=== PATIENT | female | born 1975 | race Caucasian/White ===

== ENCOUNTER 2017-12-22 13:23 | Emergency (ER) | payer OTHER ==
[2017-12-22] MEDS ORDERED: OLANZAPINE (ODT) 5 MG TAB PO (13:26)
== END 2017-12-22 14:36 | disposition left against medical advice (07) ==
LOC: E/R 13:23
DX: F29 Unspecified psychosis not due to a substance or known physiological condition (principal)
CPT/HCPCS: 99283; Z7502